=== PATIENT | female | born 2000 | race Hispanic/Latino ===

== ENCOUNTER 2019-02-07 10:06 | Day surgery (SDC) | payer OTHER ==
[2019-02-07 10:33] VITALS: BMI 43.7
[2019-02-07 10:34] VITALS: BP 133/76; TEMP 98.6
[2019-02-07] MEDS ORDERED: hydrALAZINE 20 MG/ML VIAL SLOW IVP PRN (11:00)
--- NOTE | 2019-02-07 11:27 | PDOC.LDHP ---
Labor and Delivery H&P Chief complaint: other (Antepartum testing 2/2 cHTN) HPI: 18 yo w/ PMH of morbid obesity and complicated by PIH and A1 GDM. She reports she is feeling well and has no complaints. No abd pain/ epigastric pain, cp, sob, NVDC. No ctx, LOF, or vaginal discharge. Reports pos movement. Current gestational age (weeks): 34 (34) Dating criteria: last menstrual period, second trimester ultrasound (20.1 c/w LMP) Grav: 1 Para: 0 Current complications: gestational diabetes, gestational hypertension Abnormal US findings: No Current medications: pre-del vitamins, other (Aspirin 81mg/day) Previous surgical history: none Allergies/Adverse Reactions: Allergies Allergy/AdvReac Type Severity Reaction Status Date / Time No Known Allergies Allergy Verified 01/21/19 16:14 Social history: none - Physical Exam Vital signs reviewed and normal: yes General: NAD Heart: RRR Lungs: CTAB Abdomen: NTTP Extremeties: trace edema FHT: category 1 (baseline 155 mod variability with pos accels. No late or varaible decelerations.) [place] contractions every: None - OB Labs Blood type: O RH: negative Antibody Screen: negative HIV: negative RPR: negative HEPSAg: negative 1 hour GCT: positive 3 hour GTT: 1hr >200 GBS: negative Urine drug screen: not done Rubella: immune - Plan -: 1) PIH vs Preeclampsia - will repeat labs and perform testing including NST and BPP - BPP is 8/8 and NST shows baseline 155 with mod variability and pos accels - recheck CBC and CMP, pt had elevated AST in past, but <2x upper limit of normal - If lfts are stable and no severe pressures plan to dc to home with close OP f/ u and weekly testing 2) GDM A1: cont to monitor home BS. Addendum - Attending - Attending Attestation Date/Time: 02/07/19 1510 I personally evaluated the patient and discussed the management with Dr. Walsh. I agree with the History, Examination, Assessment and Plan documented above with any addition or exceptions noted below. No severe pressures. Surveillance labs and APT all reassuring. Follow up this week at [facility] and for repeat APT as indicated. Return precautions discussed.
--- NOTE | 2019-02-07 11:47 | ULT ---
US Biophysical Profile HISTORY: Chronic hypertension testing. COMPARISON: None. FINDINGS: Real-time imaging of the pelvis shows a single viable intrauterine in a cephalic presentation. Cervical canal length is 3.3 cm. The heart rate is 158 beats minute. The placenta is anterior in location without evidence of previa. The amniotic fluid index is 9.2. biophysical profile score is as follows: tone: 2. breathin. movements: 2. Amniotic fluid: 2. IMPRESSION: biophysical profile score of 8 of a possible 8.
[2019-02-07 12:09] LABS: #Lymphocytes 1.7 thou/uL (1.20-3.40); #Monocytes 0.4 thou/uL (0.11-0.59); #Neutrophils 6.3 thou/uL (1.40-6.50); %Basophils 0.1 % (0.0-1.0); %Eosinophils 0.5 % (0.0-10.0); %Lymphocytes 19.6 % (28.0-48.0); %Monocytes 4.7 % (0.0-4.0); %Neutrophils 75.1 % (31.0-61.0); Hemoglobin 12.3 g/dL (12.0-16.0); Mean Corpuscular HGB CONC 33.2 g/dL (32.0-36.0); Mean Corpuscular Hemoglobin 26.2 pg (25.0-35.0); Mean Corpuscular Volume 78.9 fL (78.0-98.0); Mean Platelet Volume 9.2 fL (7.4-10.4); Platelet Count 244 thou/uL (130-400); RBC Distribution Width 14.1 % (11.5-14.5); White Blood Cell (WBC) Count 8.4 thou/uL (4.8-10.8)
[2019-02-07 12:34] LABS: ALT (SGPT) 13 U/L (8-55); AST (SGOT) 9 U/L (5-34); Albumin 3.5 g/dL (3.5-5.0); Alkaline Phosphatase 168 U/L (40-150); Anion Gap 14 mmol/L (10-20); BUN (Urea Nitrogen) 5 mg/dL (7.0-18.7); Bilirubin, Total 0.3 mg/dL (0.2-1.2); Calc. Creatinine Clearance 260 mL/min (70-130); Calcium 9.7 mg/dL (7.8-10.44); Carbon Dioxide 23 mmol/L (22-29); Chloride 104 mmol/L (98-107); Estimated GFR-MDRD Greater than 90; Globulin 3.5 g/dL (2.4-3.5); Glucose 107 mg/dL (70-105); Potassium 3.8 mmol/L (3.5-5.1); Sodium 137 mmol/L (136-145); Uric Acid 4.3 mg/dL (2.6-6.0)
[2019-02-07] MEDS ORDERED: NS / Oxytocin 40 units/1000ml 1,000 ML IV PRN (13:48)
[2019-02-07] MEDS ORDERED: Ondansetron PF 4 MG/2 ML Vial IVP PRN (13:48)
[2019-02-07] MEDS ORDERED: Acetaminophen 500 MG TAB PO PRN (13:48)
[2019-02-07] MEDS ORDERED: Lidocaine 1% (PF) 30 ML VIAL SC PRN (13:48)
[2019-02-07] MEDS ORDERED: Ibuprofen 800 MG TAB PO PRN (13:48)
[2019-02-07] MEDS ORDERED: Butorphanol Tartrate 1 MG/ML VIAL SLOW IVP PRN (13:48)
[2019-02-07] MEDS ORDERED: Promethazine HCl 25 MG/ML VIAL IM PRN (13:48)
[2019-02-07] MEDS ORDERED: Lactated Ringer's 1,000 ML IV SCH (14:00)
[2019-02-07] MEDS ORDERED: NS w/ Oxytocin 10 units 500 ML IV SCH (14:00)
== END 2019-02-07 14:00 | disposition home health service (06) ==
LOC: L&D/OP 10:06
PROVIDERS: ATTEND Emergency Medicine
DX: O24.419 Gestational diabetes mellitus in pregnancy, unspecified control (principal); O13.3 Gestational [pregnancy-induced] hypertension without significant proteinuria, third trimester; O99.213 Obesity complicating pregnancy, third trimester; E66.01 Morbid (severe) obesity due to excess calories; Z79.82 Long term (current) use of aspirin; Z3A.34 34 weeks gestation of pregnancy
CPT/HCPCS: 36415; 76819; 80053; 84550; 85025; 99283

== ENCOUNTER 2019-02-18 12:24 | Day surgery (SDC) | payer OTHER ==
[2019-02-18 13:18] VITALS: BMI 44.2
--- NOTE | 2019-02-18 14:01 | PDOC.FPROB ---
FMR OB H&P: HPI - History of Present Illness Chief Complaint: Tachycardia History of Present Illness: Mrs. Baker is a 18 yo at 35.4 by LMP c/w 20.1wk sono who presented for evaluation of tachycardia. Pt was seen at [facility] today and had a BPP that was 8/8 but noted tachycardia and thus was referred here for evaluation. Today pt states she is feeling well and denies any acute symptoms. She admits to not drinking as much fluids as she should be recently. She denies any n/v/d or urinary changes. Currently on the monitor the pt has BP of 130s/80/s and FHT has baseline of 140's-150's. Pt denies any contractions or abdominal pain at this time. Primary Care Physician: Dr. Aurelia Mann FMR OB H&P: Current - Care : 1 Para: 0 Gestational age: 35.4 Due date: 03/21/19 Dating Criteria: LMP and sono @14 - OB Labs RH: negative FMR OB H&P: History - Past Medical History PMH: No significant past medical history - OB History OB History: Pt notes she was found to be around [address] Mann at the clinic. Later in the she was found to have elevated blood pressures and was referred on to [facility] who later diagnosed her with pre-eclampsia that has since been stable without any severe features or severe range pressures. 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 LARD TUB WASHER History: No significant history - Surgical History Sx History: No previous surgeries - Social History Social History: Denies tobacco, alcohol, or drug use - Family History Family History: Sister w/ hx of preeclampsia FMR OB H&P: Medications - Current Home Medications: Medication Instructions Recorded Confirmed Type Aspirin [Ecotrin Low Strength] 81 mg PO DAILY 01/21/19 02/18/19 History Vitamin 1 tablet PO DAILY 01/21/19 02/18/19 History Allergies/Adverse Reactions: Allergies Allergy/AdvReac Type Severity Reaction Status Date / Time No Known Allergies Allergy Verified 02/18/19 13:12 FMR OB H&P: ROS - Review of Systems General: denies: fever/chills, fatigue Eyes: denies: vision changes, double vision, scotomas Cardiovascular: denies: chest pain, palpitation, edema Respiratory: denies: shortness of breath Gastrointestinal: denies: abdominal pain, nausea, vomiting, diarrhea Genitourinary (Female): denies: dysuria, polyuria Musculoskeletal: denies: pain Neurologic: denies: weakness FMR OB H&P: Vital Signs - Maternal Vital signs: 134/83 - Heart Tones Baseline: 140 Variability: moderate Acceleration: present Deceleration: absent Category: category 1 [place] contractions every: NA FMR OB H&P: Physical Exam - Physical Exam General: NAD HEENT: normocephalic and atraumatic, EOMI, grossly normal vision Neck: supple, FROM, no JVD Heart: RRR, normal S1/S2 General: CTAB, no respiratory distress, no rales/rhonchi Abdomen: soft, gravid, non-tender Musculoskeletal: pulses present, FROM in all four extremities Neurological: cranial nerves II through XII intact Lymphatic: no unusual bruising or bleeding Psychiatric: intact recent and remote memory, good judgement and insight, normal mood and affect FMR OB H&P: A/P - Problem List (1) tachycardia Current Visit: Yes Status: Acute Code(s): [id number] - (2) History of pre-eclampsia Current Visit: Yes Status: Acute Code(s): Z87.59 - PERSONAL HISTORY OF COMP OF PREG, CHLDBRTH AND THE PUERP Disposition: tachycardia -Sent from clinic after FHR of 170's on BPP -BPP was 8/8 -FHT here has remained <160, current baseline 140's -Pt asymptomatic but admits to low fluid intake recently -PO fluid resuscitation and continued FHT monitoring without any acute findings History of preeclampsia in current -BP <140's/90's throughout stay here with intermittent monitoring -Previously monitored by [facility] for this, most recent urine prot/cr ratio: 0.86 on 01/21/19 -Taking 81mg ASA daily -No sx of severe pre-e Dispo: Stable - discharge as tachycardia has resolved with light PO fluid resuscitation Case, assessment, and plan were discussed with Dr. Sy Discussion: Date/Time: 02/18/19 8291 Addendum - Attending - Attending Attestation Date/Time: 02/18/19 1500 I personally evaluated the patient and discussed the management with Dr. Perkins. I agree with the History, Examination, Assessment and Plan documented above.
[2019-02-18] MEDS ORDERED: hydrALAZINE 20 MG/ML VIAL SLOW IVP PRN (14:02)
[2019-02-18] MEDS ORDERED: Lactated Ringer's 1,000 ML IV SCH (14:15)
== END 2019-02-18 15:03 | disposition home health service (06) ==
LOC: L&D/OP 12:24
PROVIDERS: ATTEND Obstetrics & Gynecology
DX: O76 Abnormality in fetal heart rate and rhythm complicating labor and delivery (principal); O14.93 Unspecified pre-eclampsia, third trimester; Z3A.35 35 weeks gestation of pregnancy; Z79.82 Long term (current) use of aspirin
CPT/HCPCS: 99282

== ENCOUNTER 2019-02-25 17:20 | Inpatient (IN) | payer MEDICAID, OTHER ==
[2019-02-25 17:54] VITALS: BMI 44.2
[2019-02-25] MEDS ORDERED: hydrALAZINE 20 MG/ML VIAL SLOW IVP PRN (19:08)
[2019-02-25] MEDS ORDERED: Lidocaine 1% (PF) 30 ML VIAL SC PRN (19:08)
[2019-02-25] MEDS ORDERED: Acetaminophen 500 MG TAB PO PRN (19:08)
[2019-02-25] MEDS ORDERED: Ibuprofen 800 MG TAB PO PRN (19:08)
[2019-02-25] MEDS ORDERED: Promethazine HCl 25 MG/ML VIAL IM PRN (19:08)
[2019-02-25] MEDS ORDERED: NS / Oxytocin 40 units/1000ml 1,000 ML IV PRN (19:08)
[2019-02-25] MEDS ORDERED: Ondansetron PF 4 MG/2 ML Vial IVP PRN (19:08)
--- NOTE | 2019-02-25 19:10 | PDOC.FPROB ---
FMR OB H&P: HPI - History of Present Illness Chief Complaint: Induction of labor Indentification: 18yo F @ 36.4 wks by LMP c/w 20.1 wk sono History of Present Illness: Patient presents today for induction of labor after being diagnosed with oligohydramnios. complicated by pre-eclampsia superimposed on chronic HTN and obesity. Received rhogam on 01/21/19 LMP: 06/14/18 Last BPP today 03/18, CONY 2.8. FHT baseline 160, moderate variability, + accelerations. One variable decel. SVE on 02/25/19 @ 1930: 1/10%/-3 Jamil Score: 3 Cephalic Primary Care Physician: RAMONA Loo FMR OB H&P: Current - Care : 1 Para: 0 Gestational age: 36.4 Due date: 03/21/2019 Dating Criteria: LMP c/w 20.1 wk sono Course/Complications: pre-eclampsia superimposed on chronic htn - OB Labs Blood type: O RH: negative Antibody Screen: negative HIV: negative RPR: negative HepBsAg: negative Rubella: non-immune Gonorrhea: negative Chlamydia: negative 1 hour gtt: 161 3 hour GTT: normal A1c: 5.6 GBS: unknown H&H: 12.3/37.1 on 02/07/19 Platelets: 244 on 02/07/19 Additional labs: 24 hr urine protein 01/19/19 was 640 FMR OB H&P: History - Past Medical History PMH: Chronic HTN - OB History OB History: , complicated by pre-eclampsia superimposed on chronic HTN, oligohydramnios , and obesity - Family History Family History: Grandmother with HTN and DM FMR OB H&P: Medications - Current Home Medications: Medication Instructions Recorded Confirmed Type Aspirin [Ecotrin Low Strength] 81 mg PO DAILY 01/21/19 02/25/19 History Vitamin 1 tablet PO DAILY 01/21/19 02/25/19 History Allergies/Adverse Reactions: Allergies Allergy/AdvReac Type Severity Reaction Status Date / Time No Known Allergies Allergy Verified 02/25/19 17:38 FMR OB H&P: ROS - Review of Systems General: denies: fever/chills Eyes: denies: eye pain, vision changes ENT: denies: nasal congestion, sore throat Cardiovascular: denies: chest pain Respiratory: denies: cough, congestion, shortness of breath Gastrointestinal: denies: abdominal pain, cramping Genitourinary (Female): denies: vaginal discharge, vaginal pain, vaginal bleeding Hematologic/Lymphatic: denies: prolonged or excessive bleeding, enlarged lymph nodes FMR OB H&P: Vital Signs - Maternal Vital signs: BP: 130/71 Pulse: 78 O2 Sat: 95% on RA - Heart Tones Baseline: 145 Variability: moderate Acceleration: present Deceleration: absent Category: category 1 FMR OB H&P: Physical Exam - Physical Exam General: NAD, awake, alert and oriented HEENT: normocephalic and atraumatic, EOMI General: no respiratory distress Abdomen: soft, gravid, non-tender Neurological: DTR +2, no clonus, no tremor, no focal deficit Skin: no rash - Pelvic Exam Vulva: normal hair distribution, no discharge, no blood Cervix: no masses SVE: Presentation: vertex FMR OB H&P: A/P - Problem List (1) Chronic hypertension with superimposed preeclampsia Current Visit: Yes Status: Acute Code(s): O11.9 - PRE-EXISTING HYPERTENSION WITH PRE-ECLAMPSIA, UNSP TRIMESTER (2) Rh negative status during Current Visit: Yes Status: Acute Code(s): O26.899 - OTH RELATED CONDITIONS, UNSPECIFIED TRIMESTER; Z67.91 - UNSPECIFIED BLOOD TYPE, RH NEGATIVE (3) BMI 40.0-44.9, adult Current Visit: Yes Status: Acute Code(s): Z68.41 - BODY MASS INDEX (BMI) 40.0-44.9, ADULT (4) Intrauterine Current Visit: Yes Status: Acute Code(s): Z34.90 - ENCNTR FOR SUPRVSN OF NORMAL , UNSP, UNSP TRIMESTER (5) Oligohydramnios Current Visit: Yes Status: Acute Code(s): O41.00X0 - OLIGOHYDRAMNIOS, UNSP TRIMESTER, NOT APPLICABLE OR UNSP Qualifiers: Trimester: third trimester (6) Rubella non-immune status, antepartum Current Visit: Yes Status: Acute Code(s): O99.89 - OTH DISEASES AND CONDITIONS COMPL PREG/CHLDBRTH; Z28.3 - UNDERIMMUNIZATION STATUS Disposition: Induction of pre-term intrauterine -36.4 wks by lmp c/w 20.1 wk sono -history of pre-eclampsia superimposed on chronic HTN -had CONY of 2.8 at clinic today, consisted with oligohydramnios -GBS unknown, sample collected today -vitals have been stable -193 SVE 3 -Jamil score 3 -reactive strip, baseline 145, accelerations, no decelerations, no contractions -Penicillin started, pending lab results from [facility] -start cytotec -continue to monitor vitals RH negative status -received Rhogam 01/21/19 -will monitor baby's bili after Rubella non-immune -no concerning signs on previous U/S, but limited by body habitus -will be repaired for resuscitative measures -will encourage patient to get rubella vaccine pp Pre-eclampsia superimposed on chronic HTN -vitals stable today - 24 hr urine protein 01/19/19 was 640 -platelets 244 wnl on 02/07/19 -some elevated ALT labs throughout , but most recent AST/ALT on 02/07 was 9/13 Fluids: LR Diet: Ice chips Code Status: full code Dispo: induction of labor for pre-eclampsia superimposed on chronic HTN Discussion: Date/Time: 02/25/191909 This H&P was discussed with Dr. Bejarano and Dr. Boyce who agree with the above documentation and plan. 18 year old at 36.4 wks by LMP/20.1 wk sono presents for medically indicated IOL for oligohydramnios (CONY 2.8cm) on today's BPP/NST. 1. Medically indicated IOL - Oligohydramnios (CONY 2.8 cm on BPP 02/25) - Unfavorable cervix, will proceed with cytotec induction 2. GBS unknown - swab reported collected today per patient (02/25) - will initiate GBS prophylaxis given patient is - if swab results (unlikely that it will) before delivery and GBS neg confirmed , then can d/c abx 3. Rh negative - s/p rhogam as confirmed by documentation at 28 wks, antibody screen positive 4. Pre-E superimposed on cHTN - Patient on ASA during - Recent workup for pre-E during hospitalization - Patient with 24h urine protein 1090 on 01/22/2019 - CMP with ALT as high as 85, but down to 13 on 02/07 - Patient was scheduled for induction on Friday, but presented today instead d/ t oligohydramnios - Continue to monitor BP's very carefully. PRN medications for BP >160/110 - Will repeat CMP today 5. Morbid obesity - BMI 44 6. Rubella non-immune - Will need MMR vaccine SANDRA Bejarano, DO PGY-3 Addendum - Attending - Attending Attestation Date/Time: 02/26/19 0701 I personally evaluated the patient and discussed the management with Dr. Bejarano and team. I agree with the History, Examination, Assessment and Plan documented above with any addition or exceptions noted below. cHTN with superimposed preE now with oligo. Will proceed with induction.
[2019-02-25] MEDS: Lactated Ringer's 1,000 ML IV SCH (19:15)
[2019-02-25 19:28] LABS: Hemoglobin 12.5 g/dL (12.0-16.0); Mean Corpuscular HGB CONC 32.7 g/dL (32.0-36.0); Mean Corpuscular Volume 76.6 fL (78.0-98.0); Mean Platelet Volume 10.5 fL (7.4-10.4); Platelet Count 243 thou/uL (130-400); RBC Distribution Width 14.3 % (11.5-14.5); Red Blood Cell (RBC) Count 4.98 mill/uL (4.00-5.20); White Blood Cell (WBC) Count 10.2 thou/uL (4.8-10.8)
[2019-02-25] MEDS ORDERED: Misoprostol 100 MCG TAB VAG SCH (19:30)
[2019-02-25] MEDS ORDERED: Penicillin G Potassium 5 MILL.UNITS in Sodium Chloride 0.9% 100 ML IVPB SCH (20:00)
[2019-02-25 20:07] LABS: Syphilis Antibody Nonreactive (Nonreactive); Syphilis Antibody Index 0.03 S/CO (<1.00 Non-Reactive)
[2019-02-25 20:41] LABS: ALT (SGPT) 9 U/L (8-55); AST (SGOT) 12 U/L (5-34); Albumin 3.5 g/dL (3.5-5.0); Alkaline Phosphatase 218 U/L (40-150); Anion Gap 14 mmol/L (10-20); BUN (Urea Nitrogen) 8 mg/dL (7.0-18.7); Bilirubin, Total 0.2 mg/dL (0.2-1.2); Calc. Creatinine Clearance 271 mL/min (70-130); Calcium 9.3 mg/dL (7.8-10.44); Carbon Dioxide 19 mmol/L (22-29); Chloride 108 mmol/L (98-107); Estimated GFR-MDRD Greater than 90; Globulin 2.8 g/dL (2.4-3.5); Glucose 86 mg/dL (70-105); Protein, Total 6.3 g/dL (6.0-8.3); Sodium 137 mmol/L (136-145)
[2019-02-26] MEDS: Misoprostol 100 MCG TAB VAG SCH ×4 (00:41→17:35)
[2019-02-26] MEDS: Penicillin G 2.5 MILL.units 2.5 MILL.UNITS in Premix Bag 1 BAG IVPB SCH ×4 (00:47→17:31)
--- NOTE | 2019-02-26 00:51 | PDOC.LDPN ---
Labor & Delivery Progress Note - Subjective Subjective: comfortable, no concerns - Objective Vital signs reviewed and normal: yes (BPs in 130s) General: NAD, resting Uterine fundus: non tender SVE: 0045 on 02/26 Dilation: 1 Effacement: 25% (30%) Station: -3 FHT: variability present (moderate) - Assessment (1) Chronic hypertension with superimposed preeclampsia Code(s): O11.9 - PRE-EXISTING HYPERTENSION WITH PRE-ECLAMPSIA, UNSP TRIMESTER Current Visit: Yes Status: Acute (2) Rh negative status during Code(s): O26.899 - OT RELATED CONDITIONS, UNSPECIFIED TRIMESTER; Z67.91 - UNSPECIFIED BLOOD TYPE, RH NEGATIVE Current Visit: Yes Status: Acute (3) BMI 40.0-44.9, adult Code(s): Z68.41 - BODY MASS INDEX (BMI) 40.0-44.9, ADULT Current Visit: Yes Status: Acute (4) Intrauterine Code(s): Z34.90 - ENCNTR FOR SUPRVSN OF NORMAL , UNSP, UNSP TRIMESTER Current Visit: Yes Status: Acute (5) Oligohydramnios Code(s): O41.00X0 - OLIGOHYDRAMNIOS, UNSP TRIMESTER, NOT APPLICABLE OR UNSP Current Visit: Yes Status: Acute Qualifiers: Trimester: third trimester (6) Rubella non-immune status, antepartum Code(s): O99.89 - [facility] DISEASES AND CONDITIONS COMPL PREG/CHLDBRTH; Z28.3 - UNDERIMMUNIZATION STATUS Current Visit: Yes Status: Acute Plan: continue plan of care, labor augmentation -: Patient denies feeling contractions. [place] showing occasional contractions. Resting comfortable. No vaginal bleeding 1/30%/-3 @ 0045 on 02/26 Reactive strip. Baseline 145, + accelerations, no decels One more cytotec administered vaginally Continue to monitor toco and FHT Will re-check in 4 hours Addendum - Attending - Attending Attestation Date/Time: 02/26/19 0704 I personally evaluated the patient and discussed the management with Dr. Bejarano and team. I agree with the History, Examination, Assessment and Plan documented above with any addition or exceptions noted below.
[2019-02-26 02:39] LABS: HBSAg Index 0.24 S/CO (0-0.99); Hep B Surf Ag Non-Reactive S/CO (NonReactive)
[2019-02-26] MEDS: Lactated Ringer's 1,000 ML IV SCH ×2 (04:37→17:36)
--- NOTE | 2019-02-26 05:41 | PDOC.LDPN ---
Labor & Delivery Progress Note - Subjective Subjective: comfortable, no concerns - Objective Vital signs reviewed and normal: yes (BP 132/60, Pulse 79) General: NAD, resting Uterine fundus: non tender SVE: 09/09/-3 @ 530 on 02/26 FHT: variability present (reactive strip, baseline 135. + Accels, no decels. ) [place] contractions every: 1-4 minutes, unfelt by patient Resuscitative measures: maternal IV fluids (LR) - Assessment (1) Chronic hypertension with superimposed preeclampsia Code(s): O11.9 - PRE-EXISTING HYPERTENSION WITH PRE-ECLAMPSIA, UNSP TRIMESTER Current Visit: Yes Status: Acute (2) Rh negative status during Code(s): O26.899 - OTH RELATED CONDITIONS, UNSPECIFIED TRIMESTER; Z67.91 - UNSPECIFIED BLOOD TYPE, RH NEGATIVE Current Visit: Yes Status: Acute (3) BMI 40.0-44.9, adult Code(s): Z68.41 - BODY MASS INDEX (BMI) 40.0-44.9, ADULT Current Visit: Yes Status: Acute (4) Intrauterine Code(s): Z34.90 - ENCNTR FOR SUPRVSN OF NORMAL , UNSP, UNSP TRIMESTER Current Visit: Yes Status: Acute (5) Oligohydramnios Code(s): O41.00X0 - OLIGOHYDRAMNIOS, UNSP TRIMESTER, NOT APPLICABLE OR UNSP Current Visit: Yes Status: Acute Qualifiers: Trimester: third trimester (6) Rubella non-immune status, antepartum Code(s): O99.89 - OTH DISEASES AND CONDITIONS COMPL PREG/CHLDBRTH; Z28.3 - UNDERIMMUNIZATION STATUS Current Visit: Yes Status: Acute Plan: continue plan of care, labor augmentation (3rd cytotec given at cervical check at 530am 02/26)
--- NOTE | 2019-02-26 09:56 | PDOC.LDPN ---
Labor & Delivery Progress Note - Subjective Subjective: comfortable, no concerns - Objective Vital signs reviewed and normal: yes General: NAD, resting Uterine fundus: non tender SVE: @ [address] Chang Dilation: 2 Effacement: 50% Station: -3 FHT: category 1 (absent decels, few accels. FHT's 135.), variability present [place] contractions every: 5-7 min - Assessment (1) Chronic hypertension with superimposed preeclampsia Code(s): O11.9 - PRE-EXISTING HYPERTENSION WITH PRE-ECLAMPSIA, UNSP TRIMESTER Current Visit: Yes Status: Acute (2) Intrauterine Code(s): Z34.90 - ENCNTR FOR SUPRVSN OF NORMAL , UNSP, UNSP TRIMESTER Current Visit: Yes Status: Acute (3) Oligohydramnios Code(s): O41.00X0 - OLIGOHYDRAMNIOS, UNSP TRIMESTER, NOT APPLICABLE OR UNSP Current Visit: Yes Status: Acute Qualifiers: Trimester: third trimester (4) Rubella non-immune status, antepartum Code(s): O99.89 - OTH DISEASES AND CONDITIONS COMPL PREG/CHLDBRTH; Z28.3 - UNDERIMMUNIZATION STATUS Current Visit: Yes Status: Acute (5) History of pre-eclampsia Code(s): Z87.59 - PERSONAL HISTORY OF COMP OF PREG, CHLDBRTH AND THE PUERP Current Visit: No Status: Acute Plan: continue plan of care, pitocin for augmentation -: 18 y/o female, induction of labor because of oligohydramnios, CONY 2.8 1. IOL -cytotec X3 -starting Pit -SVE 2/50%/-3 @ 0915 -recheck at 13:15 -epidural for pain management 2. Oligohydramnios -CONY 2.8 3. Pre-eclampsia superimposed on chronic HTN -BP's 150/77 at time of check -continue close monitoring Dispo: stable, monitor BP's, continue current management of induction with addition of pit.
[2019-02-26] MEDS ORDERED: NS w/ Oxytocin 10 units 500 ML IV SCH (10:45)
[2019-02-26] MEDS ORDERED: NS w/ Oxytocin 10 units 500 ML ONE (10:48)
[2019-02-26] MEDS ORDERED: Labetalol HCl 100 MG/20 ML VIAL SLOW IVP PRN (14:05)
--- NOTE | 2019-02-26 14:11 | PDOC.LDPN ---
Labor & Delivery Progress Note - Subjective Subjective: comfortable, no concerns - Objective Abnormal vital signs: BP's 180/105, on recheck 161/97 General: NAD, resting Uterine fundus: non tender SVE: By Dr. Chang @1350 Dilation: 2 Effacement: 75% Station: -3 FHT: category 1 (FHT's 150 baseline. Accels present. No Decels. ), variability present [place] contractions every: 7-8 minutes - Assessment (1) Chronic hypertension with superimposed preeclampsia Code(s): O11.9 - PRE-EXISTING HYPERTENSION WITH PRE-ECLAMPSIA, UNSP TRIMESTER Current Visit: Yes Status: Acute (2) Intrauterine Code(s): Z34.90 - ENCNTR FOR SUPRVSN OF NORMAL , UNSP, UNSP TRIMESTER Current Visit: Yes Status: Acute (3) Oligohydramnios Code(s): O41.00X0 - OLIGOHYDRAMNIOS, UNSP TRIMESTER, NOT APPLICABLE OR UNSP Current Visit: Yes Status: Acute Qualifiers: Trimester: third trimester (4) Rubella non-immune status, antepartum Code(s): O99.89 - OTH DISEASES AND CONDITIONS COMPL PREG/CHLDBRTH; Z28.3 - UNDERIMMUNIZATION STATUS Current Visit: Yes Status: Acute (5) History of pre-eclampsia Code(s): Z87.59 - PERSONAL HISTORY OF COMP OF PREG, CHLDBRTH AND THE PUERP Current Visit: No Status: Acute Plan: pitocin for augmentation -: 18 y/o female, induction of labor because of oligohydramnios, CONY 2.8 1. IOL -cytotec X3 -Pit titrated to 12. -SVE 2/70%/-3 @ 1350 -plan to place a Cook balloon -requesting epidural for pain management 2. Oligohydramnios -CONY 2.8 3. Pre-eclampsia superimposed on chronic HTN -BP's 180/105 and 161/97 at time of check -continue close monitoring -Added Mag Dispo: stable, monitor BP's, continue current management of induction with addition of pit and Cook Balloon. Addendum - Attending - Attending Attestation Date/Time: 02/26/19 9690 I personally evaluated the patient and discussed the management with Dr. Chang. I agree with the History, Examination, Assessment and Plan documented above.
[2019-02-26] MEDS ORDERED: Magnesium Sulfate 20 GM/WATER 500 ML BAG IVPB SCH (14:15)
[2019-02-26] MEDS ORDERED: Magnesium Sulfate 20 gm/500 ml 20 GM/500 ML BAG ONE (14:20)
--- NOTE | 2019-02-26 15:04 | PDOC.EVN ---
Event Note - Event Note Event Note: Placement of a Cook Catheter at 1500. Unable to visualize cervix with Speculum. Cook catheter placement successful via digital SVE. Patient still /3 at placement. Continue Pit, and Mag. Addendum - Attending - Attending Attestation Date/Time: 02/26/191537 I performed and assisted with the placement of the Cook Balloon.
[2019-02-26] MEDS: Butorphanol Tartrate 1 MG/ML VIAL SLOW IVP PRN ×2 (17:27→19:47)
[2019-02-26] MEDS: NS w/ Oxytocin 10 units 500 ML IV SCH (17:36)
--- NOTE | 2019-02-26 19:31 | PDOC.LDPN ---
Labor & Delivery Progress Note - Subjective Subjective: comfortable - Objective Abnormal vital signs: few 140s/90s BP's with one 164/95 General: NAD, resting Uterine fundus: non tender SVE: @ [address] Mann around the balloon Dilation: 2 FHT: category 1 (difficult to trace the FHT at times), variability present [place] contractions every: 1-3 min - Assessment (1) Intrauterine Code(s): Z34.90 - ENCNTR FOR SUPRVSN OF NORMAL , UNSP, UNSP TRIMESTER Current Visit: Yes Status: Acute Comment: 18 y/o @ 36.5 wks by LMP c/ w 20.1 wk sono Medically indicated induction of labor for oligohydramnios. The patient had cHTN with superimposed pre-eclampsia, but during induction has developed pre- eclampsia with severe features with now 4 BP's in the severe range. SVE 2cm with rest unable to fully assess due to balloon. Balloon was placed at 1500 Pt is s/p 3 doses of cytotec with first dose given around 1930 last night. She is currently on pitocin that has been titrated between 6-12 over the past several hours She is shae on the monitor every 1-3 minutes, but denies feeling any contractions, just a little cramping. She has received stadol, but adamantly denies pain with me, although the nurse reported her pain was 7/10. -Will continue plan of care with balloon and pitocin, but will recheck at 2100 and if no change will remove balloon, AROM, and put in internal catheters to titrate the pitocin. (2) Oligohydramnios Code(s): O41.00X0 - OLIGOHYDRAMNIOS, UNSP TRIMESTER, NOT APPLICABLE OR UNSP Current Visit: Yes Status: Acute Qualifiers: Trimester: third trimester Comment: IOL for oligohydramnios (3) Severe pre-eclampsia Code(s): O14.10 - SEVERE PRE-ECLAMPSIA, UNSPECIFIED TRIMESTER Current Visit: Yes Status: Acute Comment: Pt has developed superimposed pre-eclampsia with severe features on chronic HTN -On magnesium -labetalol prn BP > 160/110 Plan: continue plan of care
[2019-02-26] MEDS: Labetalol HCl 100 MG/20 ML VIAL SLOW IVP PRN (19:43)
[2019-02-26] MEDS ORDERED: Fentanyl 4 mcg/Bup 0.1% Cadd 100 ML ONE (20:00)
[2019-02-26] MEDS ORDERED: Lidocaine 1.5%/Epinephrine 1:200,000 5 ML AMPUL IJ ONE (21:16)
[2019-02-26] MEDS ORDERED: Ondansetron PF 4 MG/2 ML Vial IVP PRN (21:28)
[2019-02-26] MEDS ORDERED: Naloxone HCl 0.4 mg/ml Vial IVP PRN ×2 (21:28)
[2019-02-26] MEDS ORDERED: diphenhydrAMINE 50 MG/ML VIAL IVP PRN (21:28)
[2019-02-26] MEDS ORDERED: ePHEDrine/0.9% NaCl/PF SYRINGE 50 mg/10 ml SLOW IVP PRN (21:28)
[2019-02-26] MEDS ORDERED: Acetaminophen 325 MG TAB PO PRN (21:28)
[2019-02-26] MEDS ORDERED: Lactated Ringer's 500 ML IV PRN (21:28)
[2019-02-26] MEDS ORDERED: Promethazine HCl 25 MG/ML VIAL IM PRN (21:28)
[2019-02-26] MEDS ORDERED: Communication Order-Pharmacy FS SCH (21:30)
[2019-02-26] MEDS ORDERED: Fentanyl 4 mcg/Bupivacaine 0.1% Cassette 100 ML EPIDURAL SCH (21:30)
--- NOTE | 2019-02-26 21:49 | PDOC.LDPN ---
Labor & Delivery Progress Note - Subjective Subjective: comfortable (epidural just placed) - Objective Vital signs reviewed and normal: yes Abnormal vital signs: 4 severe range pressures in a row 4 hrs ago - resolved with labetalol 10mg General: NAD, resting Uterine fundus: non tender SVE: @ [address] Mann Dilation: 4 Effacement: 50% Station: -2 FHT: category 1, variability present [place] contractions every: 2 minutes AROM: clear fluid IUPC placed: yes - Assessment (1) Intrauterine Code(s): Z34.90 - ENCNTR FOR SUPRVSN OF NORMAL , UNSP, UNSP TRIMESTER Current Visit: Yes Status: Acute Comment: 18 y/o @ 36.5 wks by LMP c/ w 20.1 wk sono Medically indicated induction of labor for oligohydramnios. The patient had cHTN with superimposed pre-eclampsia, but during induction has developed pre- eclampsia with severe features Pt is s/p 3 doses of cytotec with first dose given around 1929 last night. s/p cooks balloon that came out around 1999 She is currently on pitocin that has been titrated between 6-12 over the past several hours ctx q2min SVE @ 2145 - 4/50/-2 with AROM, clear fluid and IUPC placed Epidural in place -Will continue pitocin and titrate to adequate contractions (2) Oligohydramnios Code(s): O41.00X0 - OLIGOHYDRAMNIOS, UNSP TRIMESTER, NOT APPLICABLE OR UNSP Current Visit: Yes Status: Acute Qualifiers: Trimester: third trimester Comment: IOL for oligohydramnios (3) Severe pre-eclampsia Code(s): O14.10 - SEVERE PRE-ECLAMPSIA, UNSPECIFIED TRIMESTER Current Visit: Yes Status: Acute Comment: Pt has developed superimposed pre-eclampsia with severe features on chronic HTN -On magnesium -labetalol prn BP > 160/110 Plan: continue plan of care
[2019-02-26] MEDS: Magnesium Sulfate 20 gm/500 ml 20 GM/500 ML BAG IVPB SCH (22:50)
[2019-02-27] MEDS ORDERED: Lidocaine 2% 10 ML INJ ONE (00:41)
[2019-02-27] MEDS: Misoprostol 100 MCG TAB VAG SCH ×4 (01:32→18:57)
--- NOTE | 2019-02-27 02:04 | PDOC.LDPN ---
Labor & Delivery Progress Note - Subjective Subjective: painful contractions - Objective Abnormal vital signs: few BP's in 140s/90s, no recent severe range pressures General: breathing through contractions Uterine fundus: palpable contractions SVE: @ 0130 by Nurse Carolina Dilation: /-2 FHT: category 1, variability present [place] contractions every: 2 minutes - Assessment (1) Intrauterine Code(s): Z34.90 - ENCNTR FOR SUPRVSN OF NORMAL , UNSP, UNSP TRIMESTER Current Visit: Yes Status: Acute Comment: 18 y/o @ 36.6 wks by LMP c/ w 20.1 wk sono Medically indicated induction of labor for oligohydramnios. The patient had cHTN with superimposed pre-eclampsia, but during induction has developed pre- eclampsia with severe features Pt is s/p 3 doses of cytotec with first dose given around 1929 on 02/25. s/p cooks balloon that came out around 1999 on 02/26 She is currently on pitocin that has been titrated for adequate contractions ctx q2min SVE @ 2330 and @ 0130 - /-[address], but pt having significant pain. She has required two re- boluses by anesthesia -Will continue pitocin and titrate to adequate contractions, if unchanged after 4 total hours of adequate ctx then will proceed with delivery. (2) Oligohydramnios Code(s): O41.00X0 - OLIGOHYDRAMNIOS, UNSP TRIMESTER, NOT APPLICABLE OR UNSP Current Visit: Yes Status: Acute Qualifiers: Trimester: third trimester Comment: IOL for oligohydramnios (3) Severe pre-eclampsia Code(s): O14.10 - SEVERE PRE-ECLAMPSIA, UNSPECIFIED TRIMESTER Current Visit: Yes Status: Acute Comment: Pt has developed superimposed pre-eclampsia with severe features on chronic HTN -On magnesium -labetalol prn BP > 160/110 Plan: continue plan of care, pitocin for augmentation
[2019-02-27] MEDS: Penicillin G 2.5 MILL.units 2.5 MILL.UNITS in Premix Bag 1 BAG IVPB SCH ×4 (02:18→18:57)
[2019-02-27 02:25] LABS: #Lymphocytes 1.7 thou/uL (1.20-3.40); #Monocytes 0.7 thou/uL (0.11-0.59); #Neutrophils 8.3 thou/uL (1.40-6.50); %Basophils 0.3 % (0.0-1.0); %Eosinophils 0.1 % (0.0-10.0); %Lymphocytes 15.8 % (28.0-48.0); %Monocytes 6.5 % (0.0-4.0); %Neutrophils 77.3 % (31.0-61.0); Hemoglobin 12.6 g/dL (12.0-16.0); Mean Corpuscular HGB CONC 32.4 g/dL (32.0-36.0); Mean Corpuscular Hemoglobin 25.1 pg (25.0-35.0); Mean Corpuscular Volume 77.6 fL (78.0-98.0); Mean Platelet Volume 9.6 fL (7.4-10.4); Platelet Count 218 thou/uL (130-400); RBC Distribution Width 14.4 % (11.5-14.5); Red Blood Cell (RBC) Count 5.03 mill/uL (4.00-5.20); White Blood Cell (WBC) Count 10.8 thou/uL (4.8-10.8)
[2019-02-27 02:45] LABS: ALT (SGPT) 10 U/L (8-55); AST (SGOT) 15 U/L (5-34); Albumin 3.4 g/dL (3.5-5.0); Alkaline Phosphatase 217 U/L (40-150); Anion Gap 13 mmol/L (10-20); BUN (Urea Nitrogen) 4 mg/dL (7.0-18.7); Bilirubin, Total 0.5 mg/dL (0.2-1.2); Calc. Creatinine Clearance 267 mL/min (70-130); Carbon Dioxide 21 mmol/L (22-29); Chloride 107 mmol/L (98-107); Estimated GFR-MDRD Greater than 90; Globulin 3.7 g/dL (2.4-3.5); Glucose 110 mg/dL (70-105); Potassium 4.1 mmol/L (3.5-5.1); Protein, Total 7.1 g/dL (6.0-8.3); Sodium 137 mmol/L (136-145)
[2019-02-27] MEDS ORDERED: Fentanyl 4 mcg/Bup 0.1% Cadd 0 ML ONE (03:35)
[2019-02-27] MEDS ORDERED: Bicitra 30 ML UDCUP ONE (03:59)
[2019-02-27] MEDS ORDERED: Azithromycin 500 MG VIAL ONE (04:04)
[2019-02-27] MEDS ORDERED: MORPHINE 5 MG/10 ML PF VIAL ONE (04:08)
[2019-02-27] MEDS ORDERED: Oxytocin 10 UNITS/ML VIAL ONE ×2 (04:09→05:30)
[2019-02-27] MEDS ORDERED: ePHEDrine/0.9% NaCl/PF SYRINGE 50 mg/10 ml ONE (04:09)
[2019-02-27] MEDS ORDERED: Phenylephrine HCL 10 MG/ML VIAL ONE (04:09)
[2019-02-27] MEDS ORDERED: Ondansetron PF 4 MG/2 ML Vial ONE (04:09)
[2019-02-27] MEDS ORDERED: CEFAZOLIN 3 GM in Sodium Chloride 0.9% 100 ML IVPB SCH (04:15)
[2019-02-27] MEDS ORDERED: Azithromycin 500 MG in Sodium Chloride 0.9% 250 ML 250 ML IVPB SCH (04:15)
[2019-02-27] MEDS ORDERED: CEFAZOLIN 3 GM in Premix Bag 1 BAG IVPB SCH (04:15)
[2019-02-27] MEDS ORDERED: Bicitra 30 ML UDCUP PO SCH (04:15)
--- NOTE | 2019-02-27 04:15 | PDOC.EVN ---
Event Note - Event Note Event Note: Cervical check unchanged at /-2. Dr. Andino came up to reassess and agreed. FHT remain category 1. Decision made to proceed with as pt has been same cervical check for 4 hours now. Pt agrees to this plan. Camille and Keila ordered for ppx. Anesthesia notified.
--- NOTE | 2019-02-27 04:18 | PDOC.OPDEL ---
OB Operative/Delivery Note Delivery Dr/Surgeon: Dr. Mann and Dr. Morgan with Dr. Andino attending Pre-Delivery Diagnosis: arrest of dilation, medically indicated induction Procedure/Post Delivery Dx: primary low transverse CS Weeks gestation: 36 (36w6d) Anesthesia: spinal - Findings A Sex: male Weight: 2.978 kg - 1 min: 8 - 5 min: 8 - Additional Findings/Plan Placenta delivered: manual removal findings: low transverse hysterotomy with extension Estimated blood loss: 500 mL Compilations/Other Findings: Preoperative Diagnosis: 1) intrauterine 2)Oligohydramnios 3)Preeclampsia with severe features superimposed on chronic HTN Postoperative Diagnosis: 1) intrauterine , delivered 2)Oligohydramnios 3)Preeclampsia with severe features superimposed on chronic HTN Anesthesia: spinal Indications: The patient is a 18 year old female at 36.6 weeks gestation who presents for a primary for failure to progress. Procedure in Detail: After risks, benefits, and alternatives were explained to the patient, she gave informed consent. Pre-operative antibiotics included Cefazolin 3 gram IV and Azithromycin 500mg IV. The patient was taken to the operating room and spinal anesthesia was initiated. She was placed in the supine position with a left tilt and prepped and draped in usual sterile fashion. A Pfannenstiel incision was made with a scalpel and carried down to the level of the fascia which was sharply nicked. The fascial cut was extended bilaterally with Molina scissors. The inferior and superior edges of the cut fascial edges were elevated with Deep clamps and the underlying rectus muscles were bluntly dissected free. The recti were divided sharply with hemostats to elevated and metzembaum scissors to cut, then retracted manually. The peritoneum was entered bluntly and retracted manually. Lenny O retractor was placed. A low transverse score was made with the scalpel and the uterus was entered in the midline bluntly. Clear fluid was seen. The hysterotomy was extended manually in a cephalocaudal fashion. The was noted to be vertex in the occipitoposterior position and was easily delivered by fundal pressure. Mouth and nares were bulb suctioned. Cord clamped and cut and grossly normal male was handed to waiting nurse. Cord blood was obtained. Placenta was manually extracted, found to be intact with 3 vessel cord and discarded. The endometrium was curetted with a dry lap. The uterus was found to be boggy and continued to bleed so hemabate was given. The uterus was closed with a running locking #1 Monocryl. Following this hemostasis was noted and the fundus was found to be firm. The abdomen was inspected and suctioned free of clots. The Lenny O retractor was removed and the hysterotomy was again noted to be hemostatic. The peritoneum was closed with running non-locking 3-0 vicryl suture. The fascia was closed with a running non- locking 0-PDS suture. The subcutaneous tissue was irrigated and there were a few bleeders that were cauterized with the bovie. A pin emma drain was placed. The subcutaneous tissue was approximated with interrupted 3-0 plain gut. The skin was closed with 4-0 monocryl suture. A pressure dressing was placed. All counts were correct. The patient tolerated the procedure well and was taken to the recovery room in stable condition. Estimated Blood Loss: 500 ml Complications: None Specimens: Cord blood sent to lab for blood type Findings: Grossly normal male with apgars of 8 and 8 at 1 and 5 minutes respectively. Grossly normal placenta with 3 vessel cord discarded. Drains: Keller to gravity draining clear urine Post delivery plan: recovery in LICU
[2019-02-27] MEDS ORDERED: Carboprost 250 MCG/ML AMP ONE (04:50)
[2019-02-27] MEDS ORDERED: HYDROmorphone 2 MG/ML VIAL SLOW IVP PRN (05:57)
[2019-02-27] MEDS ORDERED: Ketorolac Tromethamine 30 MG/ML VIAL IVP PRN (05:57)
[2019-02-27] MEDS ORDERED: Meperidine HCl/PF 25 MG/ML VIAL SLOW IVP PRN (05:57)
[2019-02-27] MEDS ORDERED: Promethazine HCl 25 MG/ML VIAL IM PRN (05:57)
[2019-02-27] MEDS ORDERED: Ondansetron HCl/PF 4 MG/2 ML Vial IVP PRN (05:57)
[2019-02-27] MEDS ORDERED: Naloxone HCl 0.4 mg/ml Vial IVP PRN ×2 (05:57)
[2019-02-27] MEDS ORDERED: Naloxone HCl 0.4 mg/ml Vial IV PRN (05:57)
[2019-02-27] MEDS ORDERED: Ondansetron PF 4 MG/2 ML Vial IVP PRN (05:57)
[2019-02-27] MEDS ORDERED: L&D-Morphine 4 MG/ML VIAL SLOW IVP PRN (05:57)
[2019-02-27] MEDS ORDERED: diphenhydrAMINE 50 MG/ML VIAL IVP PRN (05:57)
[2019-02-27] MEDS ORDERED: Promethazine HCl 25 MG SUPP PR PRN (05:57)
[2019-02-27] MEDS ORDERED: Ketorolac Tromethamine 30 MG/ML VIAL IVP SCH (06:00)
[2019-02-27] MEDS ORDERED: Communication Order-Pharmacy FS SCH (06:00)
--- NOTE | 2019-02-27 06:14 | PDOC.PP ---
Post Progress Note Post Day #: 0 Subjective: Patient was a 6/80/-2 at 0415 this AM. The decision was made and patient agreed upon delivery via for failure to progress. Patient is resting comfortably and holding her when I saw her this AM. Her BP was 122/81, she had just been given 10 labetalol by nurse from X2 BP readings of 160's/80. PO intake tolerated: yes Flatus: no Ambulation: no Vital Signs (12 hours) Pulse BP 02/26/19 19:43 104 H 164/95 H Weight Weight 124.284 kg - Physical Examination General: NAD Cardiovascular: no m/r/g, RRR Respiratory: clear to auscultation bilaterally, non-labored breathing Abdominal: + bowel sounds, no distention, appropriately TTP Extremities: negative homans (B) Skin: CS incision dry & intact (bandage not saturated or leaking from drain.), no rash Neurological: no gross focal deficits Psychiatric: A&Ox3, normal affect Result Diagrams: 02/27/19 02:18 02/27/19 02:18 Additional Labs: Post Labs Blood Type O NEGATIVE 02/25/19 20:19 Hep Bs Antigen Non-Reactive S/CO (NonReactive) 02/25/19 19:15 (1) Delivery by section Code(s): [id number] - Status: Acute (2) Chronic hypertension with superimposed preeclampsia Code(s): O11.9 - PRE-EXISTING HYPERTENSION WITH PRE-ECLAMPSIA, UNSP TRIMESTER Status: Acute (3) Oligohydramnios Code(s): O41.00X0 - OLIGOHYDRAMNIOS, UNSP TRIMESTER, NOT APPLICABLE OR UNSP Status: Acute Qualifiers: Fetus number: single or unspecified fetus Trimester: third trimester Qualified Code(s): O41.03X0 - Oligohydramnios, third trimester, not applicable or unspecified Comment: IOL for oligohydramnios (4) Rubella non-immune status, antepartum Code(s): O99.89 - OTH DISEASES AND CONDITIONS COMPL PREG/CHLDBRTH; Z28.3 - UNDERIMMUNIZATION STATUS Status: Acute (5) History of pre-eclampsia Code(s): Z87.59 - PERSONAL HISTORY OF COMP OF PREG, CHLDBRTH AND THE PUERP Status: Acute - Assessment/Plan 18 y/o female with a hx of Pre-Eclampsia superimposed on Chronic HTN and Oligohydramnios, admitted for induction of labor. She failed to progress to a and a fetus was delivered via this morning. 1. Primary Low Transverse Section -Patient tolerating pain well. -continue current pain and incision management. -keep drain in X2days -start DVT PPX X8 hours post op. 2. Pre-Eclampsia superimposed on Chronic HTN -Continue close monitoring of BP's now that post -Continue PRN BP medications 3. Post care 4. DVT PPX: Lovenox 40mg Q24H starting at 13:00 on 02/27/19.
[2019-02-27] MEDS ORDERED: Loperamide HCl 2 MG CAP PO PRN (06:31)
[2019-02-27] MEDS: Labetalol HCl 100 MG/20 ML VIAL SLOW IVP PRN (06:43)
[2019-02-27] MEDS ORDERED: Morphine 4 MG/ML VIAL ONE (07:46)
[2019-02-27] MEDS: Lactated Ringer's 1,000 ML IV SCH ×2 (07:57→14:25)
[2019-02-27] MEDS ORDERED: Prenatal Vitamin 1 TAB PO SCH (09:00)
[2019-02-27] MEDS: Magnesium Sulfate 20 gm/500 ml 20 GM/500 ML BAG IVPB SCH ×2 (09:37→19:47)
--- NOTE | 2019-02-27 11:24 | PDOC.PP ---
Post Progress Note Subjective: 18 yo G1 @36.6wks now s/p primary LTCS, 2/2 arrest of dilation. Pt was admitted for oligohydramnios and has chronic htn with superimposed preE who started to have severe range pressures during induction and was placed on magnesium. She is doing well, now 4 hours post surgery. She states that her pain is controlled. Denies headache, ruq pain, vision changes, or lower extremity edema. She is on magnesium and is diuresing well. She had two severe range blood pressures right after transferring to her room, for which she got labetalol and was in pain at that time. All of her bp's since then have been < 140/90. PO intake tolerated: no Flatus: no Ambulation: no Vital Signs (12 hours) Pulse BP 02/27/19 06:43 111 H 164/70 H Weight Weight 124.284 kg - Physical Examination General: NAD Cardiovascular: no m/r/g, RRR Respiratory: clear to auscultation bilaterally, non-labored breathing Abdominal: lochia, appropriately TTP Fundus firm & at: umbilicus Skin: CS incision dry & intact Neurological: no gross focal deficits (normal patellar reflex) Result Diagrams: 02/27/19 02:18 02/27/19 02:18 Additional Labs: Post Labs Blood Type O NEGATIVE 02/25/19 20:19 Hep Bs Antigen Non-Reactive S/CO (NonReactive) 02/25/19 19:15 (1) , delivered Code(s): O80 - ENCOUNTER FOR FULL-TERM UNCOMPLICATED DELIVERY Status: Acute (2) Rh negative status during Code(s): O26.899 - OTH RELATED CONDITIONS, UNSPECIFIED TRIMESTER; Z67.91 - UNSPECIFIED BLOOD TYPE, RH NEGATIVE Status: Acute (3) Rubella non-immune status, antepartum Code(s): O99.89 - OTH DISEASES AND CONDITIONS COMPL PREG/CHLDBRTH; Z28.3 - UNDERIMMUNIZATION STATUS Status: Acute (4) Severe pre-eclampsia Code(s): O14.10 - SEVERE PRE-ECLAMPSIA, UNSPECIFIED TRIMESTER Status: Acute Comment: Pt has developed superimposed pre-eclampsia with severe features on chronic HTN -On magnesium -labetalol prn BP > 160/110 (5) Hypertension affecting in third trimester Code(s): O16.3 - UNSPECIFIED MATERNAL HYPERTENSION, THIRD TRIMESTER Status: Acute - Assessment/Plan 18 yo G1 s/p primary LTCS 2/2 failure to dilate after induction of labor for oligohydramnios, with chronic htn with superimposed preE with severe features. #sIUP, delivered- -continue recovery in LICU as pt is on magnesium for severe range bps. Will continue magnesium for 24 hours post delivery. No s/s of severe features currently or of magnesium toxicity. Continue pain control and NPO. Continue to monitor for s/s of sever features or of mag tox to include I/Os, reflexes, and bp. #chronic htn with superimposed preE with severe features- 2 severe range bp's after delivery, all less than 140/90 since that time. She did require labetolol at that time but have been wnl since then and she was in pain then. See plan above. #oligohydramnios, resolved. #Rh negative in first pregnacy- aware. Received rhogam during prior admission on 01/21/19. #Rubella non-immune- MMR before discharge.
--- NOTE | 2019-02-27 12:11 | PDOC.OBLPN ---
[facility] OB Labor PN: Subj - Interval History Hospital Day: 3 Chief Complaint: 18 yo delivered at 37 weeks by [facility] OB Labor PN: Obj - Maternal Vital signs: BP: [] HR: [] RR: [] Tmax: [] Pox: []% on [] Wt: [] [facility] Labor PN: Data - Labs Lab results: Laboratory Results - last 24 hr 02/27/19 02/27/19 02/27/19 02:18 02:18 06:30 WBC 10.8 RBC 5.03 Hgb 12.6 Hct 39.1 MCV 77.6 L MCH 25.1 MCHC 32.4 RDW 14.4 Plt Count 218 MPV 9.6 Neutrophils % 77.3 H Lymphocytes % 15.8 L Monocytes % 6.5 H Eosinophils % 0.1 Basophils % 0.3 Neutrophils # 8.3 H Lymphocytes # 1.7 Monocytes # 0.7 H Eosinophils # 0.0 Basophils # 0.0 Sodium 137 Potassium 4.1 Chloride 107 Carbon Dioxide 21 L Anion Gap 13 BUN 4 L Creatinine 0.66 Estimated GFR (MDRD) Greater than 90 Glucose 110 H Calcium 9.0 Total Bilirubin 0.5 AST 15 ALT 10 Alkaline Phosphatase 217 H Serum Total Protein 7.1 Albumin 3.4 L Globulin 3.7 H Albumin/Globulin Ratio 0.9 L Screen NEGATIVE [facility] Labor PN: A/P Discussion: Date/Time: 02/27/19 1210 This H&P was discussed with [] and [] who agree with the above documentation and plan.
--- NOTE | 2019-02-27 12:14 | PDOC.PP ---
Post Progress Note Post Day #: 1 Subjective: Ms. Baker is a 18yoF delivered this morning at 0447 via primary LTCS at 39.6weeks. is resting comfortably in her room with family. She denies chest pain , shortness of breath, headache, changes in vision, paresthesia, or confusion. PO intake tolerated: yes Flatus: no Ambulation: no Vital Signs (12 hours) Pulse BP 02/27/19 06:43 111 H 164/70 H Weight Weight 124.284 kg BP: 136/73, HR 108 - Physical Examination General: NAD Cardiovascular: no m/r/g, RRR Respiratory: clear to auscultation bilaterally Abdominal: + bowel sounds, no distention Skin: CS incision dry & intact Neurological: no gross focal deficits Psychiatric: A&Ox3, normal affect Result Diagrams: 02/27/19 02:18 02/27/19 02:18 Additional Labs: Post Labs Blood Type O NEGATIVE 02/25/19 20:19 Hep Bs Antigen Non-Reactive S/CO (NonReactive) 02/25/19 19:15 (1) Chronic hypertension with superimposed preeclampsia Code(s): O11.9 - PRE-EXISTING HYPERTENSION WITH PRE-ECLAMPSIA, UNSP TRIMESTER Status: Acute (2) Delivery by section Code(s): [id number] - Status: Acute (3) Oligohydramnios Code(s): O41.00X0 - OLIGOHYDRAMNIOS, UNSP TRIMESTER, NOT APPLICABLE OR UNSP Status: Acute Qualifiers: Fetus number: single or unspecified fetus Trimester: third trimester Qualified Code(s): O41.03X0 - Oligohydramnios, third trimester, not applicable or unspecified Comment: IOL for oligohydramnios (4) Rubella non-immune status, antepartum Code(s): O99.89 - OTH DISEASES AND CONDITIONS COMPL PREG/CHLDBRTH; Z28.3 - UNDERIMMUNIZATION STATUS Status: Acute (5) History of pre-eclampsia Code(s): Z87.59 - PERSONAL HISTORY OF COMP OF PREG, CHLDBRTH AND THE PUERP Status: Acute - Assessment/Plan 18 y/o female with a hx of Pre-Eclampsia superimposed on Chronic HTN and Oligohydramnios delivered via at 0447 this morning. BPs have been stable. Most recent was 136/73. Urine output has been from 150 to 300 mL per hour for the last several hours. Normal deep tendon reflexes. 1. Primary Low Transverse Section -Patient tolerating pain well. -continue current pain and incision management. -keep drain in X2days -start DVT PPX X8 hours post op. 2. Pre-Eclampsia superimposed on Chronic HTN -Continue close monitoring of BP's now that post -Continue PRN BP medications -continue mg infusion for 24 hours post . -continue mg check q 4 hours. 3. Post care 4. DVT PPX: Lovenox 40mg Q24H starting at 13:00 on 02/27/19.
[2019-02-27] MEDS: NS w/ Oxytocin 10 units 500 ML IV SCH (14:24)
[2019-02-27] MEDS ORDERED: Bupivacaine/Epinephrine 0.25% 30 ML VIAL ONE (14:39)
--- NOTE | 2019-02-27 14:52 | PDOC.PP ---
Post Progress Note Post Day #: 1 Subjective: 18yoF delivered this morning at 0447 via primary LTCS at 39.6weeks. She is resting comfortably in her room with family. She denies chest pain, shortness of breath, headache, changes in vision, paresthesia, or confusion. PO intake tolerated: yes Vital Signs (12 hours) Pulse BP 02/27/19 06:43 111 H 164/70 H Weight Weight 124.284 kg - Physical Examination General: NAD Cardiovascular: no m/r/g, RRR Respiratory: clear to auscultation bilaterally, non-labored breathing Abdominal: + bowel sounds Extremities: negative homans (B) (+ DTRs) Skin: CS incision dry & intact, no rash Neurological: no gross focal deficits Psychiatric: A&Ox3, normal affect Result Diagrams: 02/27/19 02:18 02/27/19 02:18 Additional Labs: Post Labs Blood Type O NEGATIVE 02/25/19 20:19 Hep Bs Antigen Non-Reactive S/CO (NonReactive) 02/25/19 19:15 (1) Chronic hypertension with superimposed preeclampsia Code(s): O11.9 - PRE-EXISTING HYPERTENSION WITH PRE-ECLAMPSIA, UNSP TRIMESTER Status: Acute (2) Delivery by section Code(s): [id number] - Status: Acute (3) Oligohydramnios Code(s): O41.00X0 - OLIGOHYDRAMNIOS, UNSP TRIMESTER, NOT APPLICABLE OR UNSP Status: Acute Qualifiers: Fetus number: single or unspecified fetus Trimester: third trimester Qualified Code(s): O41.03X0 - Oligohydramnios, third trimester, not applicable or unspecified Comment: IOL for oligohydramnios (4) Rubella non-immune status, antepartum Code(s): O99.89 - OTH DISEASES AND CONDITIONS COMPL PREG/CHLDBRTH; Z28.3 - UNDERIMMUNIZATION STATUS Status: Acute (5) History of pre-eclampsia Code(s): Z87.59 - PERSONAL HISTORY OF COMP OF PREG, CHLDBRTH AND THE PUERP Status: Acute - Assessment/Plan 18 y/o female with a hx of Pre-Eclampsia superimposed on Chronic HTN and Oligohydramnios delivered via at 0447 this morning. BPs have been stable in the 130s/60s, except for one which was 152/75. She denies any symptoms of headache or elevated pressure. Urine output has been from 75-250 mL per hour for the last several hours. Normal deep tendon reflexes. 1. Primary Low Transverse Section -Patient tolerating pain well. -continue current pain and incision management. -start DVT PPX X8 hours post op. 2. Pre-Eclampsia superimposed on Chronic HTN -Continue close monitoring of BP's now that post -Continue PRN BP medications -continue mg infusion for 24 hours post . -continue mg check q 4 hours. 3. Post care DVT PPX: Lovenox 40mg Q24H started at 13:00 on 02/27/19.
[2019-02-27] MEDS: Enoxaparin Sodium 40 MG/0.4 ML SYRINGE SC SCH (15:32)
[2019-02-27] MEDS ORDERED: Ketorolac Tromethamine 30 MG/ML VIAL ONE (15:57)
[2019-02-27] MEDS ORDERED: ePHEDrine 50 MG/ML VIAL ONE (16:17)
[2019-02-27] MEDS ORDERED: Adacel (T-DAP) 0.5 ML SYRINGE IM ONE (19:55)
[2019-02-27] MEDS ORDERED: Ibuprofen 800 MG TAB PO SCH (19:55)
[2019-02-27] MEDS ORDERED: Simethicone Chewable 80 MG TAB PO PRN (19:55)
[2019-02-27] MEDS ORDERED: Calcium Gluconate 4.6 MEQ in Sodium Chloride 0.9% 100 ML IVPB PRN (19:55)
[2019-02-27] MEDS ORDERED: Lanolin Ointment 7 GM TUBE TOP PRN (19:55)
[2019-02-27] MEDS ORDERED: hydrALAZINE 20 MG/ML VIAL SLOW IVP PRN (19:55)
--- NOTE | 2019-02-27 19:55 | PDOC.PP ---
Post Progress Note Post Day #: 0 Subjective: 18yoF delivered this morning at 0447 via primary LTCS at 39.6weeks due to failure to progress. She is resting comfortably in her room. She denies chest pain, shortness of breath, headache, changes in vision, paresthesia, or confusion. She states she feels well overall. Weight Weight 124.284 kg - Physical Examination General: NAD Cardiovascular: no m/r/g, RRR Respiratory: clear to auscultation bilaterally, non-labored breathing Abdominal: + bowel sounds, no distention, appropriately TTP Skin: CS incision dry & intact, no rash Neurological: no gross focal deficits Deviation from normal: DTRs 1+ patellar b/l Psychiatric: A&Ox3, normal affect Result Diagrams: 02/27/19 02:18 02/27/19 02:18 Additional Labs: Post Labs Blood Type O NEGATIVE 02/25/19 20:19 Hep Bs Antigen Non-Reactive S/CO (NonReactive) 02/25/19 19:15 (1) BMI 40.0-44.9, adult Code(s): Z68.41 - BODY MASS INDEX (BMI) 40.0-44.9, ADULT Status: Acute (2) Chronic hypertension with superimposed preeclampsia Code(s): O11.9 - PRE-EXISTING HYPERTENSION WITH PRE-ECLAMPSIA, UNSP TRIMESTER Status: Acute (3) Delivery by section Code(s): [id number] - Status: Acute (4) , delivered Code(s): O80 - ENCOUNTER FOR FULL-TERM UNCOMPLICATED DELIVERY Status: Acute (5) History of pre-eclampsia Code(s): Z87.59 - PERSONAL HISTORY OF COMP OF PREG, CHLDBRTH AND THE PUERP Status: Acute - Assessment/Plan 18 y/o female with a hx of Pre-Eclampsia superimposed on Chronic HTN and Oligohydramnios delivered via at 0447 on 02/27 due to failure to progress. Urine output has been from 75-250 mL per hour for the last several hours. Normal deep tendon reflexes. No severe range BPs Pre-Eclampsia superimposed on Chronic HTN Mg started prior to delivery - Continue close monitoring of BP's now that post . BPs have been stable with most w/ SBP in 130s/70s. Most recent 108/65. - UOP 75ms/hr over the last hour. Will continue to monitor. - Continue PRN BP medications - Continue Mg infusion for 24 hours post . - Continue mg check q 4 hours. Next one at 2330. Primary Low Transverse Section - Patient tolerating pain well. - continue current pain and incision management. - Routine PP care Dispo: continue Mg checks, complete 24hrs of Mg @ 0500 on 02/28 and will then transfer to PP
--- NOTE | 2019-02-27 23:49 | PDOC.PP ---
Post Progress Note Post Day #: 0 Subjective: 18yoF delivered this morning at 0447 via primary LTCS at 39.6weeks due to failure to progress. She is resting comfortably in her bed. She denies chest pain, shortness of breath, headache, changes in vision, paresthesia, or confusion. She states she feels well overall. Weight Weight 124.284 kg - Physical Examination General: NAD Cardiovascular: no m/r/g, RRR Respiratory: clear to auscultation bilaterally, non-labored breathing Abdominal: + bowel sounds, lochia, no distention, appropriately TTP Skin: CS incision dry & intact, no rash Neurological: no gross focal deficits Deviation from normal: reflexes normal Psychiatric: A&Ox3, normal affect Result Diagrams: 02/27/19 02:18 02/27/19 02:18 Additional Labs: Post Labs Blood Type O NEGATIVE 02/25/19 20:19 Hep Bs Antigen Non-Reactive S/CO (NonReactive) 02/25/19 19:15 (1) BMI 40.0-44.9, adult Code(s): Z68.41 - BODY MASS INDEX (BMI) 40.0-44.9, ADULT Status: Acute (2) Chronic hypertension with superimposed preeclampsia Code(s): O11.9 - PRE-EXISTING HYPERTENSION WITH PRE-ECLAMPSIA, UNSP TRIMESTER Status: Acute (3) Delivery by section Code(s): [id number] - Status: Acute (4) , delivered Code(s): O80 - ENCOUNTER FOR FULL-TERM UNCOMPLICATED DELIVERY Status: Acute (5) History of pre-eclampsia Code(s): Z87.59 - PERSONAL HISTORY OF COMP OF PREG, CHLDBRTH AND THE PUERP Status: Acute - Assessment/Plan 18 y/o female with a hx of Pre-Eclampsia superimposed on Chronic HTN and Oligohydramnios delivered via at 0447 on 02/27 due to failure to progress. Urine output has been from 75-250 mL per hour for the last several hours. Normal deep tendon reflexes. No severe range BPs Pre-Eclampsia superimposed on Chronic HTN Mg started prior to delivery - Continue close monitoring of BP's now that post . BPs have been stable with most w/ SBP in 130s/70s. Most recent 123/65 - UOP continue to be around 75ms/hr. Will continue to monitor. - Continue PRN BP medication. Patient has not required any PRNs thus far. - Continue Mg infusion for 24 hours post - Continue mg check q 4 hours. Next one at 0330. Primary Low Transverse Section - Patient tolerating pain well. - continue current pain and incision management. - Routine PP care Dispo: continue Mg checks, complete 24hrs of Mg @ 0500 on 02/28 and will then transfer to PP
[2019-02-28] MEDS: HYDROcodone/Acetaminophen 5/325 mg Tablet PO PRN ×3 (00:39→19:56)
--- NOTE | 2019-02-28 03:28 | PDOC.PP ---
Post Progress Note Post Day #: 1 Subjective: 18yoF delivered this morning at 0447 via primary LTCS at 39.6weeks due to failure to progress. Patient sleeping initially on exam.. She denies chest pain , shortness of breath, headache, changes in vision, paresthesia, or confusion. Weight Weight 124.284 kg - Physical Examination General: NAD Cardiovascular: no m/r/g, RRR Respiratory: clear to auscultation bilaterally, non-labored breathing Deviation from normal: snoring Abdominal: no distention, appropriately TTP Skin: CS incision dry & intact, no rash Neurological: no gross focal deficits Deviation from normal: reflexes normal throughout Psychiatric: A&Ox3, normal affect Result Diagrams: 02/27/19 02:18 02/27/19 02:18 Additional Labs: Post Labs Blood Type O NEGATIVE 02/25/19 20:19 Hep Bs Antigen Non-Reactive S/CO (NonReactive) 02/25/19 19:15 (1) BMI 40.0-44.9, adult Code(s): Z68.41 - BODY MASS INDEX (BMI) 40.0-44.9, ADULT Status: Acute (2) Chronic hypertension with superimposed preeclampsia Code(s): O11.9 - PRE-EXISTING HYPERTENSION WITH PRE-ECLAMPSIA, UNSP TRIMESTER Status: Acute (3) Delivery by section Code(s): [id number] - Status: Acute (4) , delivered Code(s): O80 - ENCOUNTER FOR FULL-TERM UNCOMPLICATED DELIVERY Status: Acute (5) History of pre-eclampsia Code(s): Z87.59 - PERSONAL HISTORY OF COMP OF PREG, CHLDBRTH AND THE PUERP Status: Acute - Assessment/Plan 18 y/o female with a hx of Pre-Eclampsia superimposed on Chronic HTN and Oligohydramnios delivered via at 0447 on 02/27 due to failure to progress. Urine output has been from 75-175 mL per hour for the last several hours. Normal deep tendon reflexes. No severe range BPs. Pre-Eclampsia superimposed on Chronic HTN Mg started prior to delivery - Continue close monitoring of BP's now that post . BPs have been stable.. Most recent 118/60. - UOP around 100ms/hr over the last hour. Will continue to monitor. - Continue PRN BP medication. Patient has not required any PRNs thus far. - Continue Mg infusion for 24 hours post - Will transfer to PP around 0500 if patient continues to have good UOP and BPs stable. Primary Low Transverse Section - Patient tolerating pain well. - continue current pain and incision management. - Routine PP care Dispo: continue Mg checks, complete 24hrs of Mg @ 0500 on 02/28 and will then transfer to PP
[2019-02-28] MEDS ORDERED: Acetaminophen 325 MG TAB PO PRN (06:13)
[2019-02-28] MEDS: Docusate Calcium (SURFAK) 240 MG CAP PO SCH ×3 (07:21→19:56)
[2019-02-28] MEDS: Ferrous Sulfate 325 MG TAB PO SCH ×3 (07:21→21:23)
[2019-02-28] MEDS: Prenatal Vitamin 1 TAB PO SCH ×2 (07:22→09:26)
[2019-02-28] MEDS: Lactated Ringer's 1,000 ML IV SCH (07:24)
[2019-02-28 07:27] LABS: Hemoglobin 10.2 g/dL (12.0-16.0); Mean Corpuscular HGB CONC 32.3 g/dL (32.0-36.0); Mean Corpuscular Hemoglobin 25.3 pg (25.0-35.0); Mean Corpuscular Volume 78.3 fL (78.0-98.0); Mean Platelet Volume 9.4 fL (7.4-10.4); Platelet Count 185 thou/uL (130-400); RBC Distribution Width 14.4 % (11.5-14.5); Red Blood Cell (RBC) Count 4.02 mill/uL (4.00-5.20); White Blood Cell (WBC) Count 8.8 thou/uL (4.8-10.8)
[2019-02-28] MEDS: Ibuprofen 800 MG TAB PO SCH ×3 (07:34→21:21)
[2019-02-28 07:47] LABS: ALT (SGPT) 8 U/L (8-55); AST (SGOT) 16 U/L (5-34); Albumin 2.8 g/dL (3.5-5.0); Alkaline Phosphatase 143 U/L (40-150); Anion Gap 11 mmol/L (10-20); BUN (Urea Nitrogen) 5 mg/dL (7.0-18.7); Bilirubin, Total 0.5 mg/dL (0.2-1.2); Calc. Creatinine Clearance 255 mL/min (70-130); Carbon Dioxide 26 mmol/L (22-29); Chloride 103 mmol/L (98-107); Estimated GFR-MDRD Greater than 90; Glucose 77 mg/dL (70-105); Potassium 4.1 mmol/L (3.5-5.1); Protein, Total 5.8 g/dL (6.0-8.3); Sodium 136 mmol/L (136-145)
[2019-02-28] MEDS ORDERED: Sodium Chloride 0.9% 10 ML ONE ×2 (09:13→16:57)
--- NOTE | 2019-02-28 10:19 | PDOC.PP ---
Post Progress Note Post Day #: 1 Subjective: Patient states she had some RUQ abdominal pain, but the pain is not present now. She feels sore over her incision. Patient states she is trying to breast feed, but feeling some hesitation. Would like to visit with erp consultant today. Patient off Mag, and has had normal range pressures this morning. PO intake tolerated: yes Flatus: yes Ambulation: yes Vital Signs (12 hours) Temp Pulse Resp BP Pulse Ox 02/28/19 07:30 98.7 F 88 18 125/64 98 02/28/19 06:32 99.6 F 94 16 142/71 H Weight Weight 124.284 kg - Physical Examination General: NAD Cardiovascular: no m/r/g, RRR Respiratory: clear to auscultation bilaterally, non-labored breathing Abdominal: + bowel sounds, lochia, no distention, appropriately TTP Deviation from normal: no RUQ tenderness to palpation Extremities: negative homans (B) Skin: CS incision dry & intact (drain present) Neurological: no gross focal deficits Psychiatric: A&Ox3, normal affect Result Diagrams: 02/28/19 07:07 02/28/19 07:07 Additional Labs: Post Labs Blood Type O NEGATIVE 02/25/19 20:19 Hep Bs Antigen Non-Reactive S/CO (NonReactive) 02/25/19 19:15 (1) Delivery by section Code(s): [id number] - Status: Acute (2) Chronic hypertension with superimposed preeclampsia Code(s): O11.9 - PRE-EXISTING HYPERTENSION WITH PRE-ECLAMPSIA, UNSP TRIMESTER Status: Acute (3) Oligohydramnios Code(s): O41.00X0 - OLIGOHYDRAMNIOS, UNSP TRIMESTER, NOT APPLICABLE OR UNSP Status: Acute Qualifiers: Fetus number: single or unspecified fetus Trimester: third trimester Qualified Code(s): O41.03X0 - Oligohydramnios, third trimester, not applicable or unspecified Comment: IOL for oligohydramnios (4) Rubella non-immune status, antepartum Code(s): O99.89 - OTH DISEASES AND CONDITIONS COMPL PREG/CHLDBRTH; Z28.3 - UNDERIMMUNIZATION STATUS Status: Acute (5) History of pre-eclampsia Code(s): Z87.59 - PERSONAL HISTORY OF COMP OF PREG, CHLDBRTH AND THE PUERP Status: Acute - Assessment/Plan 18 y/o female with a hx of Pre-Eclampsia superimposed on Chronic HTN and Oligohydramnios, admitted for induction of labor. She failed to progress to a and a fetus was delivered via yesterday morning. 1. Primary Low Transverse Section -Patient tolerating pain well. -continue current pain and incision management. -removing drain from surgical incision today. -continue DVT PPX. 2. Pre-Eclampsia superimposed on Chronic HTN -Continue close monitoring of BP's now that post -Continue PRN BP medications if needed -Discontinue Mag 3. Post care - consult 4. DVT PPX: Lovenox 40mg Q24H Disposition: Stable, continue post care.
[2019-02-28] MEDS ORDERED: Measles/Mumps/Rubella 10 MCG/0.5 ML VIAL SC ONE (11:45)
[2019-02-28] MEDS: Enoxaparin Sodium 40 MG/0.4 ML SYRINGE SC SCH (13:18)
[2019-03-01] MEDS: HYDROcodone/Acetaminophen 5/325 mg Tablet PO PRN ×2 (04:06→16:18)
[2019-03-01] MEDS: Ibuprofen 800 MG TAB PO SCH ×4 (06:00→21:57)
--- NOTE | 2019-03-01 08:02 | PDOC.PP ---
Post Progress Note Post Day #: 2 Subjective: Ms. Baker is resting well this morning. She states that she has not had any fever, chills, chest pain, shortness of breath, or abdominal pain except for mild pain around the incision which was relieved with norco. She states that she has not attempted breast feeding yet, but is eager to try today with the help of flight service specialist. PO intake tolerated: yes Flatus: yes Ambulation: yes Vital Signs (12 hours) Temp Pulse Resp BP BP Pulse Ox 03/01/19 07:48 98.3 F 93 20 132/88 97 03/01/19 04:00 98.4 F 91 16 122/59 L 03/01/19 00:51 98.6 F 74 16 144/79 H Weight Weight 124.284 kg - Physical Examination General: NAD Cardiovascular: no m/r/g, RRR Respiratory: clear to auscultation bilaterally, non-labored breathing Abdominal: + bowel sounds, no distention, appropriately TTP Extremities: negative homans (B) Skin: CS incision dry & intact, no rash Neurological: no gross focal deficits Psychiatric: A&Ox3, normal affect Result Diagrams: 02/28/19 07:07 02/28/19 07:07 Additional Labs: Post Labs Blood Type O NEGATIVE 02/25/19 20:19 Hep Bs Antigen Non-Reactive S/CO (NonReactive) 02/25/19 19:15 (1) Chronic hypertension with superimposed preeclampsia Code(s): O11.9 - PRE-EXISTING HYPERTENSION WITH PRE-ECLAMPSIA, UNSP TRIMESTER Status: Acute (2) Delivery by section Code(s): [id number] - Status: Acute (3) Oligohydramnios Code(s): O41.00X0 - OLIGOHYDRAMNIOS, UNSP TRIMESTER, NOT APPLICABLE OR UNSP Status: Acute Qualifiers: Fetus number: single or unspecified fetus Trimester: third trimester Qualified Code(s): O41.03X0 - Oligohydramnios, third trimester, not applicable or unspecified Comment: IOL for oligohydramnios (4) Rubella non-immune status, antepartum Code(s): O99.89 - OTH DISEASES AND CONDITIONS COMPL PREG/CHLDBRTH; Z28.3 - UNDERIMMUNIZATION STATUS Status: Acute (5) History of pre-eclampsia Code(s): Z87.59 - PERSONAL HISTORY OF COMP OF PREG, CHLDBRTH AND THE PUERP Status: Acute - Assessment/Plan 18 y/o female with a hx of Pre-Eclampsia superimposed on Chronic HTN and Oligohydramnios, admitted for induction of labor. She had arrest of dilation and was delivered via primary at 0447 on 02/27/2019. 1. Primary Low Transverse Section * Patient tolerating pain well. * Continue current pain and incision management. * Continue DVT PPX. 2. Pre-Eclampsia superimposed on Chronic HTN * The majority of her pressures have been in the 140s/70s. * Starting chlorthalidone 12.5mg po q daily. Will monitor pressures today. She will likely need to continue this medicine chronically, but will need to follow up with her PCP to monitor. * Has been off magnesium for >24 hours. Will watch for a total of 48 hours prior to discharge. * Asymptomatic. * Continue PRN BP medications if needed 3. Post care * consult 4. DVT PPX: Lovenox 40mg Q24H Disposition: Stable, Likely d/c tomorrow if her pressures are stable overnight. Addendum - Attending - Attending Attestation Date/Time: 03/01/19 0101 I personally evaluated the patient and discussed the management with Dr. Argueta. I agree with the History, Examination, Assessment and Plan documented above with any addition or exceptions noted below.
[2019-03-01] MEDS: Prenatal Vitamin 1 TAB PO SCH (09:23)
[2019-03-01] MEDS: Docusate Calcium (SURFAK) 240 MG CAP PO SCH ×2 (09:23→21:57)
[2019-03-01] MEDS: Ferrous Sulfate 325 MG TAB PO SCH ×2 (09:24→21:58)
[2019-03-01] MEDS ORDERED: Chlorthalidone 25 MG TAB PO SCH (10:15)
[2019-03-01] MEDS: Enoxaparin Sodium 40 MG/0.4 ML SYRINGE SC SCH (14:18)
[2019-03-02] MEDS: HYDROcodone/Acetaminophen 5/325 mg Tablet PO PRN (01:06)
[2019-03-02] MEDS: Ibuprofen 800 MG TAB PO SCH (05:07)
--- NOTE | 2019-03-02 07:54 | PDOC.PP ---
Post Progress Note Post Day #: 3 Subjective: Ms. Baker is resting comfortably this morning. She states that she slept well overnight with baby (Marin) in the room with her. She attempted breast feeding yesterday with the spa consultant. She was successful for about 8 min per breast and then switched to bottle. She is optimistic about pumping and when she gets home. She denies headaches, changes in vision, chest pain, shortness of breath, abdominal pain, constipation, dysuria. PO intake tolerated: yes Flatus: yes Ambulation: yes Vital Signs (12 hours) Temp Pulse Resp BP 03/02/19 05:06 98.8 F 75 18 124/63 03/02/19 00:06 98.0 F 90 18 131/80 03/01/19 20:13 98.3 F 74 18 148/73 H Weight Weight 124.284 kg - Physical Examination General: NAD Cardiovascular: no m/r/g, RRR Respiratory: clear to auscultation bilaterally, non-labored breathing Abdominal: + bowel sounds, no distention, appropriately TTP Extremities: negative homans (B) Skin: CS incision dry & intact, no rash Neurological: no gross focal deficits Psychiatric: A&Ox3, normal affect Result Diagrams: 02/28/19 07:07 02/28/19 07:07 Additional Labs: Post Labs Blood Type O NEGATIVE 02/25/19 20:19 Hep Bs Antigen Non-Reactive S/CO (NonReactive) 02/25/19 19:15 (1) Chronic hypertension with superimposed preeclampsia Code(s): O11.9 - PRE-EXISTING HYPERTENSION WITH PRE-ECLAMPSIA, UNSP TRIMESTER Status: Acute (2) Delivery by section Code(s): [id number] - Status: Acute (3) Oligohydramnios Code(s): O41.00X0 - OLIGOHYDRAMNIOS, UNSP TRIMESTER, NOT APPLICABLE OR UNSP Status: Acute Qualifiers: Fetus number: single or unspecified fetus Trimester: third trimester Qualified Code(s): O41.03X0 - Oligohydramnios, third trimester, not applicable or unspecified Comment: IOL for oligohydramnios (4) Rubella non-immune status, antepartum Code(s): O99.89 - OTH DISEASES AND CONDITIONS COMPL PREG/CHLDBRTH; Z28.3 - UNDERIMMUNIZATION STATUS Status: Acute (5) History of pre-eclampsia Code(s): Z87.59 - PERSONAL HISTORY OF COMP OF PREG, CHLDBRTH AND THE PUERP Status: Acute - Assessment/Plan 18 y/o female with a hx of Pre-Eclampsia superimposed on Chronic HTN and Oligohydramnios, admitted for induction of labor. She had arrest of dilation and was delivered via primary at 0447 on 02/27/2019. 1. Primary Low Transverse Section * Patient tolerating pain well. * Continue current pain and incision management. * Continue DVT PPX. 2. Pre-Eclampsia superimposed on Chronic HTN * The majority of her pressures have been in the 140s/70s. * Started chlorthalidone 12.5mg po q daily yesterday. Her pressures ranged 130s - 148 systolic and 70-80 diastolic. Will discharge on the same dose and recommend follow up with PCP. * Has been off magnesium for >48 hours, safe to discharge home today. * Asymptomatic. 3. Post care * consult - went well. She recommended pumping and continuing to breast feed on discharge. 4. Contraception * Patient desires nexplanon for contraception. We recommend abstinence for 6 weeks and will readdress contraception at the 2wk pp visit. 5. DVT PPX: Lovenox 40mg Q24H Disposition: Stable. Discharge home today. Addendum - Attending - Attending Attestation Date/Time: 03/02/19 9519 I personally evaluated the patient and discussed the management with Dr. Argueta. I agree with the History, Examination, Assessment and Plan documented above with any addition or exceptions noted below.
[2019-03-02 08:12] VITALS: BP 139/79; TEMP 97.8
[2019-03-02] MEDS ORDERED: Chlorthalidone 25 MG TAB PO SCH (09:00)
[2019-03-02] MEDS: Docusate Calcium (SURFAK) 240 MG CAP PO SCH (09:19)
[2019-03-02] MEDS: Prenatal Vitamin 1 TAB PO SCH (09:19)
[2019-03-02] MEDS: Ferrous Sulfate 325 MG TAB PO SCH (10:37)
== END 2019-03-02 12:20 | disposition home or self-care (01) | DRG 787 ==
LOC: L&D 17:20 → 3SW 02-28 06:22
PROVIDERS: ADMIT Student in an Organized Health Care Education/Training Program; ATTEND Student in an Organized Health Care Education/Training Program
PROC: 10D00Z1 Extraction of Products of Conception, Low, Open Approach (ICD-10-PCS; principal; 2019-02-27)
PROC: 30233S1 Transfusion of Nonautologous Globulin into Peripheral Vein, Percutaneous Approach (ICD-10-PCS; 2019-02-28)
DX: O11.4 Pre-existing hypertension with pre-eclampsia, complicating childbirth (principal); O41.03X0 Oligohydramnios, third trimester, not applicable or unspecified; O26.893 Other specified pregnancy related conditions, third trimester; Z67.91 Unspecified blood type, Rh negative; O99.214 Obesity complicating childbirth; E66.01 Morbid (severe) obesity due to excess calories; O99.89 Other specified diseases and conditions complicating pregnancy, childbirth and the puerperium; Z28.3 Underimmunization status; Z3A.36 36 weeks gestation of pregnancy; Z37.0 Single live birth
CPT/HCPCS: 36415; 51702; 80053; 83735; 85025; 85027; 85461; 86780; 86850; 86870; 86900; 86901; 87340; 90384; 90707; 90715; 96372; J0456; J0595; J0690; J1200; J1650; J1885; J2001; J2270; J2274; J2370; J2405; J2540; J2590; J3475; J3490